=== PATIENT | female | born 1955 | race Caucasian/White ===

== ENCOUNTER 2019-03-09 08:15 | Outpatient (CLI) | payer OTHER | END 2019-03-09 08:25 | disposition home or self-care (01) | LOC: MAMO-SONO 08:15 | DX: Z12.31 Encounter for screening mammogram for malignant neoplasm of breast (principal); D25.9 Leiomyoma of uterus, unspecified ==

== ENCOUNTER 2019-08-15 14:06 | Outpatient (CLI) | payer OTHER | END 2019-08-15 14:08 | disposition home or self-care (01) | LOC: RAD 14:06 | DX: M79.642 Pain in left hand (principal); M79.641 Pain in right hand ==

== ENCOUNTER 2023-03-10 07:20 | Outpatient (CLI) | payer OTHER | END 2023-03-10 07:21 | disposition home or self-care (01) | LOC: LAB 07:20 | DX: D50.8 Other iron deficiency anemias (principal); N39.0 Urinary tract infection, site not specified; E55.9 Vitamin D deficiency, unspecified; R42 Dizziness and giddiness ==

== ENCOUNTER 2023-03-10 07:53 | Outpatient (CLI) | payer OTHER | END 2023-03-10 08:06 | disposition home or self-care (01) | LOC: MAMO-SONO 07:53 | PROVIDERS: ATTEND Obstetrics & Gynecology | DX: Z12.31 Encounter for screening mammogram for malignant neoplasm of breast (principal); N64.4 Mastodynia; N63.0 Unspecified lump in unspecified breast; R10.2 Pelvic and perineal pain; N92.1 Excessive and frequent menstruation with irregular cycle ==

== ENCOUNTER 2023-03-11 10:00 | Outpatient (CLI) | payer OTHER | END 2023-03-11 10:02 | disposition home or self-care (01) | LOC: LAB 10:00 | DX: D50.8 Other iron deficiency anemias (principal); N39.0 Urinary tract infection, site not specified; E55.9 Vitamin D deficiency, unspecified; R42 Dizziness and giddiness ==

== ENCOUNTER 2023-07-08 13:43 | Emergency (ER) | payer OTHER ==
[~2023-07-08] VITALS: Ht 162.6 cm; Wt 68.9 kg
== END 2023-07-08 19:36 | disposition home or self-care (01) ==
LOC: ER 13:43
DX: M25.462 Effusion, left knee (principal)

== ENCOUNTER 2024-08-22 13:50 | Outpatient (CLI) | payer OTHER | END 2024-08-22 14:08 | disposition home or self-care (01) | LOC: MRI 13:50 | PROVIDERS: ATTEND Physical Medicine & Rehabilitation | DX: M54.12 Radiculopathy, cervical region (principal) | CPT/HCPCS: 72141 ==